=== PATIENT | female | born 1990 | race Caucasian/White ===

== ENCOUNTER 2016-11-10 10:25 | Emergency (ER) | payer OTHER ==
[~2016-11-10] VITALS: Ht 160 cm; Wt 63.6 kg
[2016-11-10 10:29] VITALS: BP 98/56; PULSE 96; RESP 25; O2SAT 100
--- NOTE | 2016-11-10 10:38 | ED.REPORT ---
HPI-Chest Pain Under 40 Date of Service Nov 10, 2016 ED Provider: Mo Stoddard DO The patient is a 26 year old female who is 33 weeks who presents to the ED due to back pain that radiates around the right rib cage. She c/o associated mild nausea with pain. She denies SOB, vomiting, and chest pain. She has had musculoskeletal back pain throughout her . This morning, the pain felt completely different and was much more severe. She denies any other health problems. Nursing Notes Stated Complaint: CHEST PAIN Chief Complaint: Chest Pain Nursing Notes Reviewed: Yes Allergies: Coded Allergies: No Known Allergies (Unverified , 11/10/16) General Time Seen by MD: 10:33 Chief Complaint Back pain Hx Obtained From: Patient Arrived By: Walk-in Sudden in Onset?: Yes Onset Occurred: Just prior to arrival Symptom Duration: Since onset Location: : Back Quality: Painful Severity: Current: Mild Recent Healthcare: No recent doctor visit, No recent hospitalization Similar Sx Previous: No Past Medical History Past Medical History healthy Past Surgical History denies Smoking History Unknown if Ever Smoker Social History Alcohol Use: Denies alcohol use Other Social History: Good social support, , Local resident Ambulatory Status Independent Review of Systems Respiratory: Denies: Shortness of breath Cardiovascular: Denies: Chest pain GI: Reports: Nausea, Denies: Vomiting Musculoskeletal: Reports: Back pain, Thoracic pain Complete sys rev & neg: except as marked. Physical Exam Physical Exam Notes: gravide uterus Initial Vital Signs Vital Signs (First) Date Time Temp Pulse Resp B/P Pulse Ox O2 Delivery O2 Flow Rate FiO2 11/10/16 10:29 96 25 98/56 100 Room Air Initial VS: Reviewed Head / Eyes: Atraumatic, Normocephalic, PERRL ENT: Mucous membranes moist, Conjunctiva normal Extremities: Vascular intact, No swelling Skin: Warm, Dry General/Constitutional: Awake, Alert, Cooperative, Not toxic appearing Respiratory / Chest: Atraumatic, No respiratory distress Cardiovascular: Heart rate NL, Regular rhythm, Heart sounds NL Tenderness/Guarding/Rebound: Positive: Tender RUQ... (Mild), Negative: Forrest's sign positive Interpretation & Diagnostics Interpretation & Diagnostics: ABDOMINAL US IMPRESSION: 1. No ultrasound findings to explain right upper quadrant and flank pain. 2. A 10 mm hepatic cyst. Dictated by: Susan Patel M.D. on 11/10/2016 at 12:04 Approved by: Susan Patel M.D. on 11/10/2016 at 12:12 Lab Results Interpretation Result Diagram: 11/10/16 1127 11/10/16 1127 Test 11/10/16 11:22 11/10/16 11:27 11/10/16 12:30 D-Dimer 0.74mg/L FEU (<0.50) White Blood Count 14.5th/mm3 (3.8-10.1) Red Blood Count 3.67mil/mm3 (3.90-5.20) Hemoglobin 10.8g/dL (12.0-15.6) Hematocrit 32.6% (35.0-46.0) Mean Corpuscular Volume 88.8fL (81-100) Mean Corpuscular Hemoglobin 29.4pg (27.0-35.0) Mean Corpuscular Hemoglobin Concent 33.1% (32.0-37.0) Red Cell Distribution Width 14.5% (12.3-15.4) Platelet Count 266bil/L (150-400) Neutrophils (%) (Auto) 89.7% (40-74) Lymphocytes (%) (Auto) 6.1% (14-46) Monocytes (%) (Auto) 3.7% (4-12) Eosinophils (%) (Auto) 0.1% (0-5) Basophils (%) (Auto) 0.1% (0-3) Sodium Level 135mEq/L (134-144) Potassium Level 3.4mEq/L (3.5-5.2) Chloride Level 100mEq/L (97-108) Carbon Dioxide Level 16mmol/L (18-29) Blood Urea Nitrogen 7mg/dL (6-20) Creatinine 0.50mg/dL (0.57-1.00) Estimat Glomerular Filtration Rate 210mL/min (>59) Glucose Level 110mg/dL (60-99) Calcium Level 8.6mg/dL (8.5-10.1) Magnesium Level 1.6mg/dL (1.6-2.6) Total Bilirubin 0.2mg/dL (0.0-1.2) Aspartate Amino Transf (AST/SGOT) 18U/L (0-50) Alanine Aminotransferase (ALT/SGPT) 16U/L (0-32) Alkaline Phosphatase 75U/L (25-150) Total Protein 6.7g/dL (6.4-8.4) Albumin 3.6g/dL (3.4-5.0) Lipase 33U/L (13-60) Hold [place] Top Tube Received (Received) Urine Color Yellow (YELLOW) Urine Appearance Hazy (CLEAR,HAZY) Urine pH 7.5 (5.0-8.0) Urine Specific [place] 1.020 (1.003-1.035) Urine Protein Tracemg/dL (NEG,TRACE) Urine Glucose (UA) Negativemg/dL (NEGATIVE) Urine Ketones 80mg/dL (NEGATIVE) Urine Occult Blood Negative (NEGATIVE) Urine Nitrite Negative (NEGATIVE) Urine Bilirubin Negative (NEGATIVE) Urine Urobilinogen Normalmg/dL (NORMAL) Urine Leukocyte Esterase Negative (NEGATIVE) Urine RBC 0-2/hpf (0-2) Urine WBC 0-5/hpf (0-5) Urine Epithelial Cells Occasional/hpf (NONE-MOD) Urine Crystals None seen (NONE SEEN) Urine Bacteria Few/hpf (NONE-FEW) Urine Hyaline Casts None/lpf (NONE) Urine Granular Casts None seen (NONE SEEN) Urine Waxy Casts None seen (NONE SEEN) Urine Red Blood Cell Casts None seen (NONE SEEN) Urine White Blood Cell Casts None seen (NONE SEEN) Urine Mucus Present (None Seen) Urine Trichomonas None seen (NONE SEEN) Urine Yeast None (NONE SEEN) Urinalysis Comment None Urine Culture Reflexed Not indicated ECG Interpretation Time: 11:09 Interpreted by: ED physician Normal ECG Interpretation: Normal ECG w/ rate of... (75) X-Ray Chest Interpretation Chest Xray Interpretation: IMPRESSION: No acute cardiopulmonary disease. Dictated by: Susan Patel M.D. on 11/10/2016 at 11:15 Approved by: Susan Patel M.D. on 11/10/2016 at 11:15 View: Portable Interpretation / Wet Read by: Interpret - Radiologist Re-Eval/Medical Decision Med Decision/Clinical Course Patient arrived [facility] the [facility] after having monitoring and the fetus was deemed to be stable. Vital signs are stable, mild leukocytosis which could be attributed to , no obvious infection is noted, adjusted d-dimer is low and no indication for CT, dominant ultrasound unremarkable. Feeling better. Do not suspect a life-threatening emergency. Patient will follow-up with her GL ACCOUNTANT tomorrow. Counseled Regarding: Diagnosis, Lab results, Need for follow-up, When/why to return to ED Discharge & Departure Primary Impression: Flank pain Disposition: Home Discharge Condition All VS Reviewed: Yes Condition: Stable Additional Instructions: All of your imaging and blood work is normal and there are no dangerous findings for your symptoms. Use Tylenol 650 mg regularly, heat, and ice to help with the pain. Follow up with your obgyn in the next week for further care. Return to the Emergency Department for any new or worsening symptoms. Referrals: [facility] (PCP) [facility] Scribe Attestation Portion of this note were transcribed by Paulina Watkins. I, Dr. Stoddard, personally performed the history, physical exam, and medical decision-making: I reviewed and confirmed the accuracy for the information in the transcribed note. Signed by: mitchell Guaman, 11/10/16 1200 copies to: [facility] Mo Stoddard DO Nov 10, 2016 10:38 Paulina Watkins Nov 10, 2016 10:46
[2016-11-10] MEDS ORDERED: 0.9% Sodium Chloride 1,000 ML IV ONE (10:46)
[2016-11-10] MEDS ORDERED: Ondansetron 2 mg/mL 2 mL Inj IVPUSH PRN (10:50)
[2016-11-10] MEDS ORDERED: HYDROcodone-APAP 5-325 mg Tablet PO ONE (10:50)
--- NOTE | 2016-11-10 11:17 | DRSVH ---
PROCEDURE: X-RAY CHEST, TWO VIEWS ([id number]) INDICATIONS: right chest/flank pain TECHNIQUE: 2 views of the chest were acquired. COMPARISON: None. FINDINGS: Surgical changes and devices: None. Lungs and pleura: No pleural effusions or pneumothorax. Lungs are clear. Mediastinum: Mediastinal contours are normal. Heart size is normal. Bones and chest wall: No suspicious bony abnormalities. Soft tissues appear unremarkable. IMPRESSION: No acute cardiopulmonary disease. Dictated by: Susan Patel M.D. on 11/10/2016 at 11:15 Approved by: Susan Patel M.D. on 11/10/2016 at 11:15
[2016-11-10 11:31] LABS: BASOPHILS % (AUTO) 0.1 % (0-3); EOSINOPHILS % (AUTO) 0.1 % (0-5); MONOCYTES % (AUTO) 3.7 % (4-12); Mean Corpuscular Hemoglobin 29.4 pg (27.0-35.0); Mean Corpuscular Volume 88.8 fL (81-100); NEUTROPHILS % (AUTO) 89.7 % (40-74); Platelet Count 266 bil/L (150-400)
[2016-11-10 12:10] LABS: Magnesium 1.6 mg/dL (1.6-2.6)
--- NOTE | 2016-11-10 12:14 | DRSVH ---
PROCEDURE: US ABDOMEN ([id number]) INDICATIONS: right upper/ right flank pain TECHNIQUE: Real-time scanning was performed of the abdominal and retroperitoneal organs, with image documentatio n. COMPARISON: None. FINDINGS: Liver: Liver is normal in size and homogeneous in echotexture. There is a 10 mm cyst in the left he patic lobe. Gallbladder: No gallstones. No gallbladder wall thickening, pericholecystic fluid or sonographic Mu rphy's sign. Biliary ducts: Intrahepatic bile ducts are non-dilated. Extrahepatic bile duct caliber measures 2.9 mm. Normal is 6-7 mm or less in diameter, or 10 mm or less post-cholecystectomy. Pancreas: Visualized portions of the pancreas are sonographically normal. Spleen: Spleen is normal in size and homogeneous in echotexture. Kidneys: Kidneys are normal in size and echotexture. Right kidney measures 11.6 cm long; left kidne y measures 12.2 cm long. No hydronephrosis or nephrolithiasis. No solid masses. Aorta: Visualized aorta is normal in caliber at less than 3 cm. Iliacs: Proximal common iliac arteries are normal in caliber at less than 2.5 cm. IVC: Intrahepatic inferior vena cava is patent. Miscellaneous: No free abdominal fluid. There is an IUP with heart rate 114 bpm. IMPRESSION: 1. No ultrasound findings to explain right upper quadrant and flank pain. 2. A 10 mm hepatic cyst. Dictated by: Susan Patel M.D. on 11/10/2016 at 12:04 Approved by: Susan Patel M.D. on 11/10/2016 at 12:12
[2016-11-10 13:06] LABS: APPEARANCE,URINE HAZY (CLEAR,HAZY); COLOR,URINE YELLOW (YELLOW)
[2016-11-10 13:07] LABS: PH,URINE 7.5 (5.0-8.0)
[2016-11-10 13:08] LABS: OCCULT BLOOD,URINE NEGATIVE (NEGATIVE); UROBILINOGEN,URINE NORMAL (NORMAL)
[2016-11-10 14:09] VITALS: BP 98/56; PULSE 96; RESP 25; O2SAT 100
== END 2016-11-10 14:11 | disposition home or self-care (01) ==
LOC: SED 10:25
DX: O26.893 Other specified pregnancy related conditions, third trimester (principal); Z3A.33 33 weeks gestation of pregnancy; M54.9 Dorsalgia, unspecified; R10.9 Unspecified abdominal pain
CPT/HCPCS: 71020; 76700; 80053; 81000; 83690; 83735; 85025; 85378; 93005; 96374; 99284; J2405; J7030